=== PATIENT | male | born 1960 | race Caucasian/White ===

== ENCOUNTER → 2021-06-12 | Day surgery (SDC) | payer MEDICARE ==
[~2021-06-12] VITALS: Ht 175.3 cm; Wt 83.9 kg
[~2021-06-12] MED LIST: ASPIRIN EC81 MG PO; LIPITOR20 MG PO; LISINOPRIL40 MG PO; PLAVIX75 MG PO; PRILOSEC20 MG PO; VICODIN 10/3251 EACH PO
[2021-06-12 10:38] LABS: BASOPHIL 0.4 % (0-2); EOSINOPHIL 1.8 % (0-5); HCT 46.8 % (42.0-52.0); HGB 15.8 g/dl (13.2-18.0); LYMPHOCYTE 33.5 % (15-48); MCH 30.4 pg (25.0-31.0); MCHC 33.8 g/dL (32.0-36.0); MONOCYTE 6.7 % (0-12); MPV 9.8 fL (6.0-9.5); NEUTROPHIL 57.1 % (41-80); NRBC 0; PLT 217 K/uL (150-400); RDW 14.1 % (11.5-14.0); WBC 10.4 K/uL (4.0-10.5)
[2021-06-12 10:48] LABS: ALBUMIN 3.6 g/dL (3.4-5.0); BILIRUBIN - TOTAL 0.8 mg/dL (0.2-1.0); BUN/CREAT RATIO (CALC) 19.8 RATIO; CREATININE 0.96 mg/dL (0.67-1.17); GLOBULIN (CALCULATION) 3.2 g/dL; POTASSIUM 3.5 mmol/L (3.5-5.1); TOTAL PROTEIN 6.8 g/dL (6.4-8.2)
== END | disposition home or self-care (01) ==
LOC: FAS 09:34
PROVIDERS: Oral & Maxillofacial Surgery
DX: K02.9 Dental caries, unspecified (principal); K04.7 Periapical abscess without sinus; K21.9 Gastro-esophageal reflux disease without esophagitis; M19.90 Unspecified osteoarthritis, unspecified site; F17.210 Nicotine dependence, cigarettes, uncomplicated; F17.290 Nicotine dependence, other tobacco product, uncomplicated; I25.2 Old myocardial infarction; I10 Essential (primary) hypertension; I73.9 Peripheral vascular disease, unspecified; I25.10 Atherosclerotic heart disease of native coronary artery without angina pectoris; J43.9 Emphysema, unspecified; Z86.73 Personal history of transient ischemic attack (TIA), and cerebral infarction without residual deficits; Z79.02 Long term (current) use of antithrombotics/antiplatelets; Z79.82 Long term (current) use of aspirin; Z79.899 Other long term (current) drug therapy; Z95.820 Peripheral vascular angioplasty status with implants and grafts
CPT/HCPCS: 36415; 71045; 80053; 85025; 93005; J1100; J1885; J2250; J2405; J2704; J7120